=== PATIENT | female | born 1995 | race Hispanic/Latino ===

== ENCOUNTER → 2017-07-10 | Outpatient (CLI) | payer OTHER ==
--- NOTE | 2017-07-10 09:21 | Diagnostic Imaging Report ---
PROCEDURE:ABDOMINAL ULTRASOUND COMPARISON:None. INDICATIONS:abdominal pain FINDINGS: Liver: 15.3 cm. Normal hepatic parenchymal echogenicity. No focal mass. Main portal vein: 8.0 mm. Hepatopedal flow. Gallbladder: Cholecystectomy. Common Bile Duct: 2.0 mm. No echogenic filling defect. Sonographic Rodriguez's sign: Negative. Right kidney: 11.2 cm. No solid or cystic mass, echogenic calculi, or hydronephrosis. Normal parenchymal echogenicity. 1.2 x 1.2 x 1.3 cm simple cyst in the inferior pole of the right kidney. Left kidney: 10.6 cm. No solid or cystic mass, echogenic calculi, or hydronephrosis. Normal parenchymal echogenicity. Spleen: 9.6 cm. No focal mass. Pancreas: The visualized portions of the pancreas are normal. Inferior vena cava: Normal. Aorta: Normal. Ascites: None. CONCLUSION: No acute sonographic abnormality. Dictated by: Pierre Wilson M.D. on 07/10/2017 at 9:21 Electronically approved by: Pierre Wilson M.D. on 07/10/2017 at 9:21
--- NOTE | 2017-07-10 10:06 | Diagnostic Imaging Report ---
PROCEDURE: Transabdominal and transvaginal ultrasound imaging of the pelvis was performed. TECHNIQUE: COMPARISON: None. INDICATIONS: DUB, IRREGULAR CYCLES FINDINGS: UTERUS: The uterus measures 6.5 x 2.8 x 4.1 cm. The endometrial echocomplex measures 5.0 mm. OVARIES/ADNEXA: No adnexal mass. Right ovary 3.9 x 2.3 x 3.3 cm. Left ovary 3.5 x 2.1 x 3.1 cm. Normal follicles are present bilaterally. PELVIS: No free fluid. IMPRESSION: No acute sonographic abnormality. Dictated by: Pierre Wilson M.D. on 07/10/2017 at 10:06 Electronically approved by: Pierre Wilson M.D. on 07/10/2017 at 10:06
== END ==
LOC: US 07:22
PROVIDERS: ATTEND Family Medicine
DX: N93.8 Other specified abnormal uterine and vaginal bleeding (principal)
CPT/HCPCS: 76700; 76856